=== PATIENT | female | born 1960 | race Caucasian/White ===

== ENCOUNTER → 2016-07-19 | Outpatient (CLI) | payer BC ==
[2015-10-19 10:55] VITALS: BP 154/64
[~2016-07-19] MED LIST: ATEN50TA PO; BENZ100C2 PO; CELE200C PO; FENO135C PO; HYDR25TA9 PO; LEVO50TA5 PO; LISI1TAB7 PO; PRED-220 PO; TRAM50TA PO; VENL225T PO; VENTOLIN HFA18 GM INH
[2016-07-19 09:09] LABS: POTASSIUM 3.7 mmol/L (3.5-5.1)
--- NOTE | 2016-07-19 15:25 | CARD ---
APPROVED REPORT EXAM: Two-dimensional and M-mode echocardiogram with Doppler and color Doppler. Other Information Quality : GoodHR: 68bpm Rhythm : NSR INDICATION Moderate mitral regurgitation RISK FACTORS Hypertension Obesity Hyperlipidemia 2D DIMENSIONS RVDd2.9 (2.9-3.5cm)Left Atrium(2D)3.8 (1.6-4.0cm) IVSd1.0 (0.7-1.1cm)Aortic Root(2D)3.0 (2.0-3.7cm) LVDd5.3 (3.9-5.9cm)LVOT Diameter2.4 (1.8-2.4cm) PWd0.0 (0.7-1.1cm)LVDs3.8 (2.5-4.0cm) FS (%) 29.1 %SV75.3 ml LVEF(%)55.0 (>50%) Aortic Valve AoV Peak Gio.120.2cm/sAoV VTI31.2cm AO Peak GR.5.8mmHgLVOT Peak Gio.89.3cm/s AO Mean GR.4mmHgAVA (VMAX)3.26cm2 Mitral Valve MV E Tjdpzich66.3cm/sMV E Peak Gr.3mmHg MV DECEL [id number] A Gpbiqrjt26.8cm/s MV E Mean Gr.2mmHgE/A Ratio0.9 MV A Affwntvp372vq Pulmonary Valve PV Peak Mllppitb04.7cm/s Pulmonary Vein S1 Lzdeavsf56.8cm/sD2 Sjluqkgv14.5cm/s PVa upewddsm35xcpk LEFT VENTRICLE The left ventricle is normal size. There is normal left ventricular wall thickness. The Ejection Frac tion for the left ventricle is 55%. There is normal LV segmental wall motion. Transmitral Doppler leila w pattern is Grade I-abnormal relaxation pattern. RIGHT VENTRICLE The right ventricle is normal size. There is normal right ventricular wall thickness. The right ventr icular systolic function is normal. ATRIA The left atrium size is mildly dilated The right atrium size is normal. The interatrial septum is int act with no evidence for an atrial septal defect or patent foramen ovale as noted on 2-D or Doppler i maging. AORTIC VALVE The aortic valve is mildly sclerotic. The aortic valve is trileaflet. Doppler and Color Flow revealed no significant aortic regurgitation. There is no significant aortic valvular stenosis. MITRAL VALVE Mitral annular calcification is mild. The mitral valve leaflets are thickened. There is no evidence o f mitral valve prolapse. There is no mitral valve stenosis. Doppler and Color Flow revealed moderate mitral regurgitation. TRICUSPID VALVE Doppler and Color Flow revealed no tricuspid valve regurgitation noted. There is no pulmonary hyperte nsion. PULMONIC VALVE Doppler and Color Flow revealed trace pulmonic valvular regurgitation. GREAT VESSELS The aortic root is normal in size. The ascending aorta is normal in size. The pulmonary artery is nor mal. The IVC is normal in size and collapses >50% with inspiration. PERICARDIAL EFFUSION There is no evidence of significant pericardial effusion. Critical Notification Critical Value: No <Conclusion> The Ejection Fraction for the left ventricle is 55%. Transmitral Doppler flow pattern is Grade I-abnormal relaxation pattern. The left atrium size is mildly dilated The right atrium size is normal. The aortic valve is mildly sclerotic. The aortic valve is trileaflet. Mitral annular calcification is mild. The mitral valve leaflets are thickened. Doppler and Color Flow revealed moderate mitral regurgitation. Doppler and Color Flow revealed no tricuspid valve regurgitation noted. There is no pulmonary hypertension. Doppler and Color Flow revealed trace pulmonic valvular regurgitation. There is no evidence of significant pericardial effusion.
== END | disposition home or self-care (01) ==
LOC: ECHO 07:28
PROVIDERS: ATTEND Internal Medicine Cardiovascular Disease
DX: I34.0 Nonrheumatic mitral (valve) insufficiency (principal); E66.01 Morbid (severe) obesity due to excess calories
CPT/HCPCS: 36415; 80051; 93306

== ENCOUNTER → 2017-02-12 | Outpatient (CLI) | payer BC ==
[2017-02-12 12:59] LABS: ALBUMIN 3.3 g/dL (3.4-5.0); ALBUMIN/GLOBULIN RATIO 0.9 (1.0-1.7); ALK PHOS 217 U/L (46-116); ALT (SGPT) 69 U/L (14-59); ANION GAP 9 (6-14); AST (SGOT) 52 U/L (15-37); BLOOD UREA NITROGEN 14 mg/dL (7-20); BUN/CREATININE RATIO 18 (6-20); CALCIUM 9.5 mg/dL (8.5-10.1); CARBON DIOXIDE 29 mmol/L (21-32); CHLORIDE 104 mmol/L (98-107); CHOLESTEROL 219 mg/dL (0-200); CHOLESTEROL/HDL RATIO 4.5; CREATININE 0.8 mg/dL (0.6-1.0); GFR 74.5; GLUCOSE 120 mg/dL (70-99); HDLC 49 mg/dL (40-60); LDLC 140 mg/dL (0-100); NON-HDL CHOLESTEROL 170 mg/dL (0-129); POTASSIUM 3.8 mmol/L (3.5-5.1); SODIUM 142 mmol/L (136-145); TOTAL BILIRUBIN 0.5 mg/dL (0.2-1.0); TOTAL PROTEIN 7.1 g/dL (6.4-8.2); TRIGLYCERIDES 150 mg/dL (0-150); VLDLC 30 mg/dL (0-40)
[2017-02-12 13:10] LABS: THYROID STIM HORMONE (TSH) 2.211 uIU/mL (0.358-3.74)
[2017-02-12 13:10] LABS: FREE T4 1.29 ng/dL (0.76-1.46)
[2017-02-12 17:11] LABS: HEMOGLOBIN A1C 6.3 % (4.8-5.6)
== END | disposition home or self-care (01) ==
LOC: LAB 12:11
DX: E78.5 Hyperlipidemia, unspecified (principal); E03.9 Hypothyroidism, unspecified; E55.9 Vitamin D deficiency, unspecified
CPT/HCPCS: 36415; 80053; 80061; 82306; 83036; 84439; 84443

== ENCOUNTER → 2017-07-12 | Outpatient (CLI) | payer BC ==
[2017-07-12 12:29] LABS: ADD MAN DIFF? NO
[2017-07-12 12:40] LABS: BASO # 0.1 x10^3/uL (0.0-0.2); BASO % 1 % (0-3); EOS % 0 % (0-3); LYMPH % 26 % (24-48); MEAN CORPUSCULAR HEMOGLOBIN 31 pg (25-35); MEAN CORPUSCULAR HGB CONC 35 g/dL (31-37); MEAN CORPUSCULAR VOLUME 88 fL (79-100); MONO # 0.3 x10^3/uL (0.0-1.1); MONO % 4 % (0-9); NEUT # 5.3 x10^3uL (1.8-7.7); NEUT % 69 % (31-73); PLATELET COUNT 217 x10^3/uL (140-400); RED BLOOD COUNT 4.91 x10^6/uL (3.50-5.40); RED CELL DISTRIBUTION WIDTH 13.8 % (11.5-14.5); WHITE BLOOD COUNT 7.8 x10^3/uL (4.0-11.0)
[2017-07-12 12:55] LABS: ALBUMIN 3.3 g/dL (3.4-5.0); ALBUMIN/GLOBULIN RATIO 0.8 (1.0-1.7); ALK PHOS 235 U/L (46-116); ALT (SGPT) 55 U/L (14-59); ANION GAP 8 (6-14); AST (SGOT) 48 U/L (15-37); BLOOD UREA NITROGEN 16 mg/dL (7-20); BUN/CREATININE RATIO 18 (6-20); CALCIUM 9.4 mg/dL (8.5-10.1); CARBON DIOXIDE 30 mmol/L (21-32); CHLORIDE 102 mmol/L (98-107); CHOLESTEROL 210 mg/dL (0-200); CREATININE 0.9 mg/dL (0.6-1.0); GLUCOSE 180 mg/dL (70-99); HDLC 60 mg/dL (40-60); LDLC 117 mg/dL (0-100); NON-HDL CHOLESTEROL 150 mg/dL (0-129); POTASSIUM 3.7 mmol/L (3.5-5.1); SODIUM 140 mmol/L (136-145); TOTAL BILIRUBIN 0.6 mg/dL (0.2-1.0); TOTAL PROTEIN 7.5 g/dL (6.4-8.2); TRIGLYCERIDES 167 mg/dL (0-150); VLDLC 33 mg/dL (0-40)
[2017-07-12 12:59] LABS: CHOLESTEROL/HDL RATIO 3.5
[2017-07-12 13:03] LABS: THYROID STIM HORMONE (TSH) 2.031 uIU/mL (0.358-3.74)
[2017-07-12 13:03] LABS: FREE T4 1.25 ng/dL (0.76-1.46)
[2017-07-13 03:13] LABS: HEMOGLOBIN A1C 8.1 % (4.8-5.6)
== END | disposition home or self-care (01) ==
LOC: LAB 12:15
DX: E55.9 Vitamin D deficiency, unspecified (principal); E03.9 Hypothyroidism, unspecified; E78.5 Hyperlipidemia, unspecified; R73.02 Impaired glucose tolerance (oral)
CPT/HCPCS: 36415; 80053; 80061; 82306; 83036; 84439; 84443; 85025

== ENCOUNTER → 2017-11-19 | Outpatient (CLI) | payer BC ==
[2015-10-19 10:55] VITALS: BP 154/64
[~2017-11-19] MED LIST changes: +BENZ-8 PO; -BENZ100C2 PO
[2017-11-19 11:13] LABS: CALCIUM 9.3 mg/dL (8.5-10.1); CREATININE 0.8 mg/dL (0.6-1.0); GFR 74.5; POTASSIUM 3.9 mmol/L (3.5-5.1)
--- NOTE | 2017-11-19 13:06 | RAD ---
DATE: 11/19/2017 EXAM: MAMMO DAPHNIE SCREENING BILATERAL HISTORY: Routine screening COMPARISON: 09/28/2014 This study was interpreted with the benefit of Computerized Aided Detection (CAD). Breast Density: SCATTERED The breast parenchyma shows scattered fibroglandular densities. Breast parenchyma level B. FINDINGS: 2-D and 3-D tomosynthesis imaging was performed in CC and MLO projections. No new or enlarging breast densities are seen. Benign type calcifications are present on the right. No suspicious microcalcifications have developed. IMPRESSION: Stable mammograms without evidence of malignancy. BI-RADS CATEGORY: 2 BENIGN FINDING(S) RECOMMENDED FOLLOW-UP: 12M 12 MONTH FOLLOW-UP PQRS compliance statement: Patient information was entered into a reminder system with a target due date for the next mammogram. Mammography is a sensitive method for finding small breast cancers, but it does not detect them all and is not a substitute for careful clinical examination. A negative mammogram does not negate a clinically suspicious finding and should not result in delay in biopsying a clinically suspicious abnormality. "Our facility is accredited by the [employer] Mammography [employer]."
[2017-11-19 23:14] LABS: HEMOGLOBIN A1C 6.6 % (4.8-5.6)
== END | disposition home or self-care (01) ==
LOC: LAB 10:40
PROVIDERS: ATTEND Family Medicine
DX: Z12.31 Encounter for screening mammogram for malignant neoplasm of breast (principal); E11.9 Type 2 diabetes mellitus without complications
CPT/HCPCS: 36415; 77063; 77067; 80048; 83036

== ENCOUNTER → 2018-04-23 | Outpatient (CLI) | payer BC ==
[2017-12-05 11:17] VITALS: BP 127/69
[~2018-04-23] MED LIST changes: +ASPI-630 PO; +CHOL10003 PO; +CHOL2000 PO; +CHOL200074 PO; +EZET10TA18 PO; +EZET1TAB58 PO; +FLUT9.9S NS; +FURO40TA4 PO; +GUAI600T47 PO; +HYDR-2145 PO; -HYDR25TA9 PO; +LORA10TA3 PO; +LOSA-73 PO; +MECL12.52 PO; +METF500T16 PO; +POTA10TA12 PO
--- NOTE | 2018-04-23 11:00 | CARD ---
MR#: [id number] Date of Study: 04/23/2018 Ordering Physician: AJAY PATEL, Referring Physician: AJAY PATEL Tech: Bonita Gottlieb RDCS APPROVED REPORT EXAM: Two-dimensional and M-mode echocardiogram with Doppler and color Doppler. Other Information Quality : Technically LimitedHR: 82bpm Rhythm : NSRTechnically limited study due to body habitus. INDICATION Chest Pain 2D DIMENSIONS RVDd3.3 (2.9-3.5cm)Left Atrium(2D)3.6 (1.6-4.0cm) IVSd1.5 (0.7-1.1cm)Aortic Root(2D)3.0 (2.0-3.7cm) LVDd4.2 (3.9-5.9cm)LVOT Diameter2.2 (1.8-2.4cm) PWd1.3 (0.7-1.1cm)LVDs3.1 (2.5-4.0cm) FS (%) 27.3 %SV42.0 ml LVEF(%)53.5 (>50%) M-Mode DIMENSIONS Left Atrium(MM)3.54 (2.5-4.0cm)Aortic Root3.26 (2.2-3.7cm) Aortic Valve AoV Peak Gio.128.9cm/sAoV VTI25.6cm AO Peak GR.6.7mmHgLVOT Peak Gio.84.7cm/s AO Mean GR.4mmHgAVA (VMAX)2.42cm2 ANDRÉS (VTI)2.40cm2 Mitral Valve MV E Refkhlny38.8cm/sMV DECEL WGPI077bo MV A Oavslyrq24.2cm/sE/A Ratio0.8 MV A Anyshqtg197oz Pulmonary Valve PV Peak Iityqlvd05.6cm/s Pulmonary Vein S1 Wdnknpra23.2cm/sD2 Gvuesiev87.9cm/s PVa cbbcthjg02iixz LEFT VENTRICLE The left ventricle is normal size. There is moderate concentric left ventricular hypertrophy. Left ve ntricle systolic function is normal. The Ejection Fraction is 55-60%. There is normal LV segmental wa ll motion. Transmitral Doppler flow pattern is Grade I-abnormal relaxation pattern. RIGHT VENTRICLE The right ventricle is normal size. There is normal right ventricular wall thickness. The right ventr icular systolic function is normal. ATRIA The left atrium size is normal. The right atrium size is normal. The interatrial septum is intact wit h no evidence for an atrial septal defect or patent foramen ovale as noted on 2-D or Doppler imaging. AORTIC VALVE The aortic valve is normal in structure and function. The aortic valve is trileaflet. Doppler and Col or Flow revealed no significant aortic regurgitation. There is no significant aortic valvular stenosi s. MITRAL VALVE The mitral valve is normal in structure and function. There is no evidence of mitral valve prolapse. There is no mitral valve stenosis. Doppler and Color-flow revealed trace mitral regurgitation. TRICUSPID VALVE The tricuspid valve is normal in structure and function. Doppler and Color Flow revealed trace tricus pid regurgitation. There is no tricuspid valve prolapse or vegetation. There is no tricuspid valve st enosis. PULMONIC VALVE The pulmonic valve is not well visualized. GREAT VESSELS The aortic root is normal in size. The ascending aorta is normal in size. The IVC is normal in size a nd collapses >50% with inspiration. PERICARDIAL EFFUSION There is no evidence of significant pericardial effusion. Critical Notification Critical Value: No <Conclusion> Left ventricle systolic function is normal. The Ejection Fraction is 55-60%. There is normal LV segmental wall motion. Transmitral Doppler flow pattern is Grade I-abnormal relaxation pattern. Trace mitral regurgitation. Trace tricuspid regurgitation. There is no evidence of significant pericardial effusion. Signed by : Ajay Patel, Electronically Approved : 04/23/2018 10:59:25
[2018-04-24] MEDS: REGADENOSON 0.4 MG/5 ML DISP.SYRIN. IV ONE (08:00)
--- NOTE | 2018-04-24 10:31 | RAD ---
MR#: [id number] Date of Study: 04/24/2018 Ordering Physician: AJAY HATCH, Referring Physician: AJAY HATCH, Tech: MARTI Lopez, RDMS, RTR APPROVED REPORT Patient Location : OUT-PATIENT Indications Lower Extremity Pain : Lower Extremity Edema : Risk Factors Obesity Past History Compression Stockings : Diabetes Findings The right great saphenous vein measures 5.5 mm and does not show any evidence of reflux. The left gre at saphenous vein measures 9 mm and does not show any evidence of reflux. The bilateral lesser saphen ous veins do not show any evidence of reflux. Critical Notification Critical Value: No <Conclusion> Negative for reflux in the bilateral greater and lesser saphenous veins. Signed by : Adan Olivia, Electronically Approved : 04/24/2018 10:30:57
--- NOTE | 2018-04-24 12:25 | RAD ---
MR#: [id number] Date of Study: 04/24/2018 Ordering Physician: AJAY HATCH, Referring Physician: CORIN PRATT Tech: Wanda Smith RT (R) (N) APPROVED REPORT Test Type: Pharmacological Stress Nurse/Tech: Tim Kamara RN Test Indications: CP Cardiac History: high cholesterol, HTN Medications: See EMR Medical History: asthma, DM Resting ECG: SR Resting Heart Rate: 73 bpm Resting Blood Pressure: 111/71mmHg Pretest Chest Pain: No chest pain Nurse/Tech Notes S1S2. Lung sounds clear. Consent: The procedure was explained to the patient in lay terms. Informed consent was witnessed. Rick eout was entered into [employer]. History and Stress Test performed by VILMA Martinez Pharm. Details Pharmacologic stress testing was performed using 0.4mg per 5ml of regadenoson given intravenously ove r 7-10 seconds. Stress Symptoms No chest pain or symptoms. POST EXERCISE Reason for Termination: Infusion complete Max HR: 87 bpm Max Blood Pressure: 142/70mmHg Blood Pressure response to exercise: Normal blood pressure response during stress. Heart Rate response to exercise: normal Chest Pain: No. Arrhythmia: No. ST Change: No. INTERPRETATION Stress EKG Conclusion: Baseline EKG showed sinus rhythm. No ischemic changes at peak stress. No arr hythmias. Imaging Protocol IMAGE PROTOCOL: Rest Tc-99m/stress Tc-99m 2 days Rest: Stress: Viability: Radiopharm.Tc99m PqebritawPp30q Sestamibi Lnzs08rXd 33.2mCi Duration 15min. 15min. Img Date 04/23/2018 04/24/2018 Inj-Img Wnau77dzv. 60min. Rest Admin Site:IV - Left AntecubitalAdministrator:TAMMI Crespo, ARRT (R)(N) Stress Admin Site: IV - Right HandAdministrator: VILMA Martinez STRESS DATA End Diast. Vol.97.0mlLVEDV index BSA38.0ml End Syst. Vol.31.0mlLVESV index BSA12.0ml Myocardial Hbrf744.0gEject. Uhrasaix18.0% Stress Scores Regional WT1.00Summed WT6.00 Regional WM0.00Summed WM1.00 Study quality was good. Left Ventricular size was Normal at Rest and Stress. Lung uptake was . Left Ventricular ejection fraction is 68%. The rest and stress images show normal perfusion, normal contraction and thickening. LV Perf. Quant 17 Seg. SSS0.00 17 Seg. SRS1.00 17 Seg. SDS0.00 Stress Defect Extent (% LAD)0.00Rest Defect Extent (% LAD)0.00Rev. Defect Extent (% LAD)0.00 Stress Defect Extent (% LCX) 0.00Rest Defect Extent (% LCX)0.00Rev. Defect Extent (% LCX)0.00 Stress Defect Extent (% RCA)0.00Rest Defect Extent (% RCA)0.00Rev. Defect Extent (% RCA)0.00 Stress Defect Extent (% LUIZA)1.30Rest Defect Extent (% LUIZA)0.00Rev. Defect Extent (% LUIZA)0.00 Conclusion 1. Regadenoson cardioisotope stress test did not show any evidence of ischemia or infarct. 2. Normal left ventricular systolic function with ejection fraction calculated at 68%. 3. Low risk for cardiac events. Signed by : Ajay Hatch, Electronically Approved : 04/24/2018 12:25:04
== END | disposition home or self-care (01) ==
LOC: ECHO 14:18
PROVIDERS: ATTEND Internal Medicine Cardiovascular Disease
DX: I34.0 Nonrheumatic mitral (valve) insufficiency (principal); I87.2 Venous insufficiency (chronic) (peripheral); I11.9 Hypertensive heart disease without heart failure; E66.9 Obesity, unspecified; E11.9 Type 2 diabetes mellitus without complications; R60.0 Localized edema; E78.00 Pure hypercholesterolemia, unspecified; J45.909 Unspecified asthma, uncomplicated
CPT/HCPCS: 78452; 93306; 96374; A9500; 93017; 93970; 96376; J2785

== ENCOUNTER → 2018-11-24 | Outpatient (CLI) | payer BC ==
[2017-12-05 11:17] VITALS: BP 127/69
[~2018-11-24] MED LIST changes: -EZET10TA18 PO; +EZET10TA20 PO; +LISI1TAB20 PO; -LISI1TAB7 PO
[2018-11-24 11:24] LABS: ALBUMIN 3.8 g/dL (3.4-5.0); ALBUMIN/GLOBULIN RATIO 0.9 (1.0-1.7); CALCIUM 10.1 mg/dL (8.5-10.1); CHOLESTEROL/HDL RATIO 4.2; CREATININE 0.9 mg/dL (0.6-1.0); GFR 64.8; TOTAL BILIRUBIN 0.6 mg/dL (0.2-1.0); TOTAL PROTEIN 7.9 g/dL (6.4-8.2)
[2018-11-24 11:36] LABS: FREE T4 1.28 ng/dL (0.76-1.46); THYROID STIM HORMONE (TSH) 2.846 uIU/mL (0.358-3.74)
[2018-11-25 00:11] LABS: HEMOGLOBIN A1C 6.3 % (4.8-5.6)
== END | disposition home or self-care (01) ==
LOC: LAB 10:22
PROVIDERS: ATTEND Family Medicine
DX: E11.9 Type 2 diabetes mellitus without complications (principal); E78.5 Hyperlipidemia, unspecified; E03.9 Hypothyroidism, unspecified
CPT/HCPCS: 36415; 80053; 80061; 83036; 84439; 84443

== ENCOUNTER → 2019-04-20 | Outpatient (CLI) | payer BC ==
[2017-12-05 11:17] VITALS: BP 127/69
[~2019-04-20] MED LIST changes: -MECL12.52 PO; +MECL12.573 PO; -POTA10TA12 PO; +POTASSIUM CHLO10 ME1 PO
[2019-04-20 11:33] LABS: ALBUMIN 3.6 g/dL (3.4-5.0); ALBUMIN/GLOBULIN RATIO 0.9 (1.0-1.7); CALCIUM 9.7 mg/dL (8.5-10.1); CHOLESTEROL/HDL RATIO 4.5; CREATININE 0.9 mg/dL (0.6-1.0); GFR 64.5; POTASSIUM 4.2 mmol/L (3.5-5.1); TOTAL BILIRUBIN 0.5 mg/dL (0.2-1.0); TOTAL PROTEIN 7.8 g/dL (6.4-8.2)
[2019-04-20 11:43] LABS: FREE T4 1.33 ng/dL (0.76-1.46); THYROID STIM HORMONE (TSH) 2.725 uIU/mL (0.358-3.74)
[2019-04-21 00:07] LABS: HEMOGLOBIN A1C 7.3 % (4.8-5.6)
== END | disposition home or self-care (01) ==
LOC: LAB 10:04
PROVIDERS: ATTEND Family Medicine
DX: E11.9 Type 2 diabetes mellitus without complications (principal); E03.9 Hypothyroidism, unspecified; E78.5 Hyperlipidemia, unspecified
CPT/HCPCS: 36415; 80053; 80061; 83036; 84439; 84443

== ENCOUNTER → 2019-07-20 | Outpatient (CLI) | payer BC ==
[2017-12-05 11:17] VITALS: BP 127/69
[~2019-07-20] MED LIST changes: +CLIN150C14 PO; +HYDR-3164 PO
--- NOTE | 2019-07-20 11:05 | CARD ---
MR#: [id number] Date of Study: 07/20/2019 Ordering Physician: AJAY HATCH, Referring Physician: AJAY HATCH, Tech: Lisa Campa APPROVED REPORT EXAM: Two-dimensional and M-mode echocardiogram with Doppler and color Doppler. Other Information Quality : AverageHR: 78bpm Technically limited study due to body habitus. INDICATION Mitral Valve Disease Mitral valve regurgitation RISK FACTORS Hypertension Hyperlipidemia Diabetes 2D DIMENSIONS Left Atrium(2D)4.1 (1.6-4.0cm)IVSd1.2 (0.7-1.1cm) Aortic Root(2D)3.0 (2.0-3.7cm)LVDd5.5 (3.9-5.9cm) LVOT Diameter2.2 (1.8-2.4cm)PWd1.1 (0.7-1.1cm) LVDs3.4 (2.5-4.0cm)FS (%) 38.7 % SV101.1 ml Aortic Valve AoV Peak Gio.139.3cm/sAoV VTI29.0cm AO Peak GR.7.8mmHgLVOT Peak Gio.107.3cm/s LVOT VTI 23.67cmAO Mean GR.5mmHg ANDRÉS (VMAX)2.13ym7RNX (VTI)3.08cm2 Mitral Valve MV E Tdmtizlz79.5cm/sMV DECEL SHWV377mm MV A Gcuklain24.9cm/sMV E Mean Gr.1mmHg MV TDK05jgQ/A Ratio0.9 MVA (PHT)4.04cm2 TDI E/Lateral E'6.5E/Medial E'7.3 Pulmonary Valve PV Peak Bpuygmoc86.1cm/sPV Peak Grad.4mmHg Tricuspid Valve TR P. Rqyehdsn390gr/sRAP WCRKNYWU0cnVe TR Peak Gr.00xvYrUFYJ77qkNi Pulmonary Vein S1 Hqqkjfcw16.7cm/sD2 Dlxvqcru28.3cm/s PVa cwzrydld039iozl LEFT VENTRICLE The left ventricle is normal size. There is mild concentric left ventricular hypertrophy. The left ve ntricular systolic function is normal and the ejection fraction is within normal range. The Ejection Fraction is 55-60%. There is normal LV segmental wall motion. Transmitral Doppler flow pattern is Gra de I-abnormal relaxation pattern. RIGHT VENTRICLE The right ventricle is normal size. There is normal right ventricular wall thickness. The right ventr icular systolic function is normal. ATRIA The left atrium size is normal. The right atrium size is normal. The interatrial septum is intact wit h no evidence for an atrial septal defect or patent foramen ovale as noted on 2-D or Doppler imaging. AORTIC VALVE The aortic valve is normal in structure and function. Doppler and Color Flow revealed no significant aortic regurgitation. There is no significant aortic valvular stenosis. MITRAL VALVE The mitral valve is normal in structure and function. There is no evidence of mitral valve prolapse. There is no mitral valve stenosis. Doppler and Color-flow revealed trace to mild mitral regurgitation . TRICUSPID VALVE The tricuspid valve is normal in structure and function. Doppler and Color Flow revealed trace to mil d tricuspid regurgitation with an estimated PAP of 36 mmHg. There is no tricuspid valve stenosis. PULMONIC VALVE The pulmonic valve is not well visualized. Doppler and Color Flow revealed no pulmonic valvular regur gitation. GREAT VESSELS The aortic root is normal in size. The IVC is dilated. PERICARDIAL EFFUSION There is no evidence of significant pericardial effusion. Critical Notification Critical Value: No <Conclusion> The left ventricle is normal size. The left ventricular systolic function is normal and the ejection fraction is within normal range. The Ejection Fraction is 55-60%. There is mild concentric left ventricular hypertrophy. Doppler and Color Flow revealed no significant aortic regurgitation. There is no significant aortic valvular stenosis. Doppler and Color-flow revealed trace to mild mitral regurgitation. Doppler and Color Flow revealed trace to mild tricuspid regurgitation with an estimated PAP of 36 mmH g. Signed by : Blair Carias MD Electronically Approved : 07/20/2019 11:04:40
== END | disposition home or self-care (01) ==
LOC: ECHO 07:42
PROVIDERS: ATTEND Internal Medicine Cardiovascular Disease
DX: I08.1 Rheumatic disorders of both mitral and tricuspid valves (principal)
CPT/HCPCS: 93306

== ENCOUNTER 2019-07-31 02:28 | Emergency (ER) | payer BC ==
[~2019-07-31] VITALS: Ht 170.2 cm; Wt 147.7 kg
[~2019-07-31 02:28] MED LIST changes: -CLIN150C14 PO; -HYDR-3164 PO
[2019-07-31] MEDS ORDERED: HYDR-3164 PO (03:09)
[2019-07-31] MEDS ORDERED: CLIN150C14 PO (03:09)
--- NOTE | 2019-07-31 03:09 | PHYS DOC ---
Past Medical History Past Medical History: Anxiety, Asthma, Bronchitis, CHF, Diabetes-Type II, High Cholesterol, Hypertension, Hypothyroid Past Surgical History: Appendectomy Additional Past Surgical Histo: R rotator cuff, bilat knee scope Smoking Status: Former Smoker Alcohol Use: Rarely Drug Use: None General Adult EDM: Chief Complaint: DENTAL PROBLEM HPI: HPI: Patient is a 59 year old female who presents for evaluation of right-sided dental and jaw pain. She states the pain radiates to her right ear and up near her right eye. Symptoms been progressing for the past 4 hours. Patient states she has a bad tooth and already has a dental appointment scheduled for later today. She states the pain was moderate and she was having trouble sleeping. There is no reported fevers and chills. There is no neck pain Review of Systems: Review of Systems: Constitutional: Denies fever or chills. [] Eyes: Denies change in visual acuity. [] HENT: Denies nasal congestion or sore throat, right dental pain, no facial swelling [] Respiratory: Denies cough or shortness of breath. [] Cardiovascular: Denies chest pain or edema. [] GI: Denies abdominal pain, nausea, vomiting, bloody stools or diarrhea. [] : Denies dysuria. [] Musculoskeletal: Denies back pain or joint pain. [] Integument: Denies rash. [] Neurologic: Denies headache, focal weakness or sensory changes. [] Endocrine: Denies polyuria or polydipsia. [] Lymphatic: Denies swollen glands. [] Psychiatric: Denies depression or anxiety. [] Heart Score: Risk Factors: Risk Factors: DM, Current or recent (<one month) smoker, HTN, HLP, family history of CAD, obesity. Risk Scores: Score 0 - 3: 2.5% MACE over next 6 weeks - Discharge Home Score 4 - 6: 20.3% MACE over next 6 weeks - Admit for Clinical Observation Score 7 - 10: 72.7% MACE over next 6 weeks - Early Invasive Strategies Allergies: Allergies: Allergies Coded Allergies Type Severity Reaction Last Updated Verified atorvastatin Allergy Intermediate 10/14/15 Yes cefuroxime Allergy Intermediate 10/14/15 Yes rosuvastatin Allergy Intermediate 10/14/15 Yes Physical Exam: PE: Constitutional: Well developed, well nourished, mild acute distress, non-toxic appearance. [] HENT: Normocephalic, atraumatic, bilateral external ears normal, oropharynx moist, no oral exudates, nose normal, no obvious dental abscess, multiple caries noted [] Eyes: PERRL, EOMI, conjunctiva normal, no discharge. [] Neck: Normal range of motion, no tenderness, supple, no stridor. [] Cardiovascular:Heart rate regular rhythm, no murmur [] Lungs & Thorax: Bilateral breath sounds clear to auscultation [] Abdomen: Bowel sounds normal, soft, no tenderness, no masses, no pulsatile masses. [] Skin: Warm, dry, no erythema, no rash. [] Back: No tenderness. [] Extremities: No tenderness, no cyanosis, no clubbing, ROM intact, no edema. [] Neurologic: Alert and oriented X 3, normal motor function, normal sensory function, no focal deficits noted. [] Psychologic: Affect normal, judgement normal, mood normal. [] Current Patient Data: Vital Signs: Vital Signs Date Time Temp Pulse Resp B/P (MAP) Pulse Ox O2 Delivery O2 Flow Rate FiO2 07/31/19 02:35 98.1 83 18 147/79 (101) 95 Room Air 98.1 EKG: EKG: [] Radiology/Procedures: Radiology/Procedures: [] Course & Med Decision Making: Course & Med Decision Making Pertinent Labs and Imaging studies reviewed. (See chart for details) [] Dragon Disclaimer: Dragon Disclaimer: This electronic medical record was generated, in whole or in part, using a voice recognition dictation system. 0305 dental pain is stable and patient has an appointment later today to see her dentist. Prescription for limited number of [place] given. She will also be st arted on clindamycin. First dose of clindamycin given now. Patient given injection of Toradol as well Departure Departure Impression: Primary Impression: Pain, dental Disposition: HOME, SELF-CARE Condition: STABLE Referrals: VINCENT GARRETT MD (PCP) Patient Instructions: Dental Pain Additional Instructions: Keep your appointment with your dentist later today, take antibiotic as directed, take your pain medication as directed which cannot drive when taking it Scripts Clindamycin Hcl (CLINDAMYCIN HCL) 150 Mg Capsule 1 CAP PO QID, #28 CAP Prov: DESI ANGELO DO 07/31/19 Hydrocodone/Apap 5-325 (NORCO 5-325 TABLET) 1 Each Tablet 1 TAB PO PRN Q6HRS PRN for PAIN, #6 TAB 0 Refills Prov: DESI ANGELO DO 07/31/19 Justicifation of Admission Dx: Justifications for Admission: Justification of Admission Dx: N/A DESI ANGELO DO Jul 31, 2019 03:09
[2019-07-31 03:27] VITALS: BP 152/96
[2019-07-31] MEDS ORDERED: KETOROLAC 15 MG/ML VIAL. IM ONE (03:30)
[2019-07-31] MEDS ORDERED: CLINDAMYCIN HCL 150 MG CAPSULE. PO ONE (03:30)
== END 2019-07-31 03:29 | disposition home or self-care (01) ==
LOC: ER 02:28
DX: K08.89 Other specified disorders of teeth and supporting structures (principal); R68.84 Jaw pain; F41.9 Anxiety disorder, unspecified; J45.909 Unspecified asthma, uncomplicated; I11.0 Hypertensive heart disease with heart failure; I50.9 Heart failure, unspecified; E78.00 Pure hypercholesterolemia, unspecified; E03.9 Hypothyroidism, unspecified; E11.9 Type 2 diabetes mellitus without complications; Z90.89 Acquired absence of other organs; Z98.890 Other specified postprocedural states; Z87.891 Personal history of nicotine dependence; Z88.8 Allergy status to other drugs, medicaments and biological substances
CPT/HCPCS: 96372; 99283; J1885

== ENCOUNTER → 2020-03-23 | Outpatient (CLI) | payer BC ==
[~2020-03-23] MED LIST changes: +CLIN150C15 PO; +HYDR-3164 PO; -MECL12.573 PO; +MECL12.574 PO
[2020-03-23 11:36] LABS: HEMATOCRIT 43.1 % (36.0-47.0); HEMOGLOBIN 14.4 g/dL (12.0-15.5); RED BLOOD COUNT 4.91 x10^6/uL (3.50-5.40); RED CELL DISTRIBUTION WIDTH 12.9 % (11.5-14.5); WHITE BLOOD COUNT 6.5 x10^3/uL (4.0-11.0)
[2020-03-23 11:42] LABS: ALBUMIN 3.5 g/dL (3.4-5.0); ALBUMIN/GLOBULIN RATIO 0.9 (1.0-1.7); CALCIUM 9.5 mg/dL (8.5-10.1); CHOLESTEROL/HDL RATIO 4.8; CREATININE 0.9 mg/dL (0.6-1.0); GFR 64.3; POTASSIUM 4.3 mmol/L (3.5-5.1); TOTAL BILIRUBIN 0.6 mg/dL (0.2-1.0); TOTAL PROTEIN 7.4 g/dL (6.4-8.2)
[2020-03-23 11:53] LABS: FREE T4 1.35 ng/dL (0.76-1.46); THYROID STIM HORMONE (TSH) 2.281 uIU/mL (0.358-3.74)
--- NOTE | 2020-03-23 20:14 | RAD ---
DATE: 03/23/2020 EXAM: MAMMO DAPHNIE SCREENING BILATERAL HISTORY: Routine annual screening COMPARISON: 11/19/2017, 09/28/2014, 03/23/2013 This study was interpreted with the benefit of Computerized Aided Detection (CAD). Breast Density: SCATTERED The breast parenchyma shows scattered fibroglandular densities. Breast parenchyma level B. FINDINGS: No suspicious mass, calcification, or architectural distortion in either breast. IMPRESSION: No evidence of malignancy. BI-RADS CATEGORY: 1 NEGATIVE RECOMMENDED FOLLOW-UP: 12M 12 MONTH FOLLOW-UP PQRS compliance statement: Patient information was entered into a reminder system with a target due date for the next mammogram. Mammography is a sensitive method for finding small breast cancers, but it does not detect them all and is not a substitute for careful clinical examination. A negative mammogram does not negate a clinically suspicious finding and should not result in delay in biopsying a clinically suspicious abnormality. "Our facility is accredited by the [employer] Mammography Program."
[2020-03-24 02:09] LABS: HEMOGLOBIN A1C 7.7 % (4.8-5.6)
== END ==
LOC: LAB 11:07
PROVIDERS: ATTEND Family Medicine
DX: Z12.31 Encounter for screening mammogram for malignant neoplasm of breast (principal); E11.9 Type 2 diabetes mellitus without complications; E55.9 Vitamin D deficiency, unspecified; E03.9 Hypothyroidism, unspecified; E78.5 Hyperlipidemia, unspecified
CPT/HCPCS: 36415; 77063; 77067; 80053; 80061; 82306; 83036; 84439; 84443; 85027

== ENCOUNTER → 2020-04-13 | Outpatient (CLI) | payer BC ==
[~2020-04-13] MED LIST changes: -MECL12.574 PO; +MECL12.582 PO
--- NOTE | 2020-04-13 15:13 | RAD ---
Exam Date: 04/13/2020 10:58 AM US ABDOMEN COMPLETE Indication: Reason: elevated liver enzyme / Spl. Instructions: / History: TECHNIQUE: Multiple longitudinal and transverse sonographic images of the abdomen are submitted for interpretation. FINDINGS: The liver is normal in size and echogenicity. The portal vein is patent, with hepatopetal flow. N o focal intrahepatic abnormality is seen. The gallbladder is normal, without gallstones, gallbladder wall thickening or pericholecystic fluid. There is no biliary ductal dilatation, with the common bile duct measuring 5 mm. The spleen is enlarged up to 15.1 cm with normal echogenicity. The visualized abdominal aorta, infer ior vena cava and pancreas are within normal limits. There is no upper abdominal ascites. The kidne ys are normal in appearance, with the right kidney measuring 12.8 cm and the left kidney measuring 12 .0 cm. IMPRESSION: Normal abdominal ultrasound. Electronically signed by: Emir Matthews MD (04/13/2020 3:11 PM) [id number]
== END ==
LOC: US 11:02
PROVIDERS: ATTEND Family Medicine
DX: R94.5 Abnormal results of liver function studies (principal)
CPT/HCPCS: 76700

== ENCOUNTER → 2020-04-20 | Outpatient (CLI) | payer BC | LOC: LAB 07:42 | PROVIDERS: ATTEND Family Medicine | DX: R74.8 Abnormal levels of other serum enzymes (principal); R74.01 Elevation of levels of liver transaminase levels | CPT/HCPCS: 84075; 84080; 86803 ==

== ENCOUNTER 2020-09-09 07:09 | Outpatient (CLI) | payer BC ==
[~2020-09-09] VITALS: Ht 170.2 cm; Wt 141.0 kg
[2020-09-09] VITALS (10 sets, daily range): BP systolic 114–143; BP diastolic 61–79
[~2020-09-09 07:09] MED LIST changes: -CLIN150C15 PO; +CLIN150C16 PO; -EZET1TAB58 PO; +[UNRECOGNIZED DRUG - CODE] PO
[2020-09-09] MEDS ORDERED: IODIXANOL 320 MG/ML 100 ML VIAL. ONE (07:46)
[2020-09-09] MEDS ORDERED: LIDOCAINE 1% PF 2 ML VIAL. ONE (07:47)
[2020-09-09 08:13] LABS: HEMATOCRIT 42.5 % (36.0-47.0); HEMOGLOBIN 14.3 g/dL (12.0-15.5); RED BLOOD COUNT 4.89 x10^6/uL (3.50-5.40); RED CELL DISTRIBUTION WIDTH 13.7 % (11.5-14.5); WHITE BLOOD COUNT 7.5 x10^3/uL (4.0-11.0)
[2020-09-09] MEDS ORDERED: GLIP5TAB22 PO (08:23)
[2020-09-09 08:24] LABS: CALCIUM 9.2 mg/dL (8.5-10.1); CREATININE 0.9 mg/dL (0.6-1.0); GFR 64.3; POTASSIUM 3.7 mmol/L (3.5-5.1)
--- NOTE | 2020-09-09 08:26 | PDOC ---
MODERATE SEDATION ASSESSMENT RISKS/ALTERNATIVES Risks/Alternatives Risks and alternatives of this type of sedation and procedure discussed with: RISK/ALTERNATIVES: Patient H & P ON CHART H & P H & P on chart and reviewed for co-morbid conditions and appropriate labs. H&P ON CHART: Yes STATUS PREG STATUS ASSESSED: N/A MEDS/ALLERGIES REVIEWED Meds/Allergies Reviewed Medications and Allergies including time and route of recently administered narcotics and sedatives. MEDS/ALLERGIES REVIEWED: Yes ASA RATING ASA RATING: II AIRWAY ASSESSMENT Airway Assessment Airway patency, oral function limitations, presence of caps, crowns, dentures, partials, and ability to extend neck assessed. AIRWAY ASSESSMENT: Yes MALLAMPATI SCORE MALLAMPATI SCORE: II PRE-SEDATION ASSESSMENT PRE-SEDATION ASSESSMENT: Yes AJAY HATCH MD Sep 09, 2020 08:26
[2020-09-09 08:28] LABS: PROTHROMBIN TIME PATIENT 12.7 SEC (11.7-14.0)
[2020-09-09] MEDS ORDERED: MIDAZOLAM HCL/PF 2 MG/2 ML VIAL. ONE (08:36)
[2020-09-09] MEDS ORDERED: VERAPAMIL 5 MG/2 ML VIAL. ONE (08:36)
[2020-09-09] MEDS ORDERED: fentaNYL PF VIAL 100 MCG/2 ML VIAL ONE (08:36)
[2020-09-09] MEDS ORDERED: NITROGLYCERIN 200 MCG/2 ML SYRINGE FOR CATH/VASC LAB. ONE (08:36)
[2020-09-09] MEDS ORDERED: HEPARIN for IV BOLUS 10,000 UNIT/10 ML VIAL. ONE (08:36)
[2020-09-09] MEDS ORDERED: NITROGLYCERIN 200 MCG/2 ML SYRINGE FOR CATH/VASC LAB. IART ONE (09:15)
[2020-09-09] MEDS ORDERED: LIDOCAINE 1% PF 2 ML VIAL. INJ ONE (09:15)
[2020-09-09] MEDS ORDERED: MIDAZOLAM HCL/PF 2 MG/2 ML VIAL. IV ONE (09:15)
[2020-09-09] MEDS ORDERED: fentaNYL PF VIAL 100 MCG/2 ML VIAL IV ONE (09:15)
[2020-09-09] MEDS ORDERED: HEPARIN for IV BOLUS 10,000 UNIT/10 ML VIAL. IART ONE (09:15)
[2020-09-09] MEDS ORDERED: IODIXANOL 320 MG/ML 100 ML VIAL. IART ONE (09:15)
[2020-09-09] MEDS ORDERED: VERAPAMIL 5 MG/2 ML VIAL. IART ONE (09:15)
--- NOTE | 2020-09-09 09:25 | CARD ---
MR#: [id number] Date of Study: 09/09/2020 Ordering Physician: AJAY HATCH, Referring Physician: AJAY HATCH Tech: HERB WYNN APPROVED REPORT Technologist: HERB WYNN Nurse: Johanne Arnold RN Procedure(s) performed: Left heart catheterization, selective coronary angiography and left ventricul ography via right transradial approach MODERATE SEDATION TIME: 26 MINS FLUORO TIME: 4.3 MIN DOSE: 58 GYCM2 CONTRAST: 93CC VISI INDICATION The indication(s) include : Dyspnea on exertion and positive stress test. [facility] Clinical Frailty Scale [facility] Clinical Frailty Scale: Mildly Frail Heart Failure Heart Failure: No PROCEDURE NARRATIVE After explaining the risks, benefits and alternative options, informed consent was obtained from arthur ent. Patient was brought to the cardiac Network Controller and right wrist was prepped and draped in the usual fashion after confirming a positive modified Niels's test. Arterial access was obtained in the [facility] radial artery and a 6 Maltese sheath was inserted. 6 Maltese Naun and 6 Maltese JL 3.5 catheters wer e used to perform selective angiography of the right and left coronary arteries. 6 Maltese pigtail ca theter was used to perform left ventriculography. Patient tolerated the procedure well. Hemostasis was achieved using TR band. There were no immediate complications. The following findings were note d. FINDINGS 1. Hemodynamics: Elevated left ventricular end-diastolic pressure of 30 mmHg consistent with acute o n chronic diastolic heart failure. No pullback gradient across the aortic valve. 2. Left ventriculography: Normal left ventricle systolic function with ejection fraction estimated at 60%. 1-2+ mitral regurgitation seen. 3. Coronary angiography: a. The left main coronary artery arose from the left sinus of Valsalva, gave rise to the left anteri or descending, ramus intermedius and left circumflex arteries and did not show any significant stenos is. b. The left anterior descending artery did not show any significant stenosis. c. The left circumflex artery did not show any significant stenosis. d. The ramus intermedius artery did not show any significant stenosis. e. The right coronary artery was a large and dominant vessel arising from the right sinus of Valsalv a that did not show any significant stenosis. Conclusion 1. No significant coronary artery disease 2. Normal left ventricle systolic function with ejection fraction estimated at 60% 3. Elevated left ventricular end-diastolic pressure of 30 mmHg consistent with acute on chronic osborne tolic heart failure Recommendations Medical Therapy Signed by : Ajay Hatch, Electronically Approved : 09/09/2020 09:24:34
[2020-09-09] MEDS ORDERED: IV 1/2 NORMAL SALINE 1,000 ML IV SCH (09:30)
--- NOTE | 2020-09-09 12:05 | NUR ---
Discharge Note: [facility] Discharge instructions and discharge home medications reviewed with Patient and a copy given. All questions have been answered and understanding verbalized. The following instructions and handouts were given: moderate sedation and radial site care. Discontinued left peripheral IV, no complications. Right radial dressing changed and arm board reapplied, no complications. Patient discharged to home, accompanied by her family member.
== END 2020-09-09 12:14 | disposition home or self-care (01) ==
LOC: CCL 07:09
PROVIDERS: ATTEND Internal Medicine Cardiovascular Disease
DX: R06.09 Other forms of dyspnea (principal); R94.39 Abnormal result of other cardiovascular function study; I11.0 Hypertensive heart disease with heart failure; I50.33 Acute on chronic diastolic (congestive) heart failure; E78.00 Pure hypercholesterolemia, unspecified; J44.9 Chronic obstructive pulmonary disease, unspecified; E66.9 Obesity, unspecified; E03.9 Hypothyroidism, unspecified; M19.90 Unspecified osteoarthritis, unspecified site; M81.0 Age-related osteoporosis without current pathological fracture; F41.9 Anxiety disorder, unspecified; F32.9 Major depressive disorder, single episode, unspecified; Z85.828 Personal history of other malignant neoplasm of skin; Z87.891 Personal history of nicotine dependence; Z79.899 Other long term (current) drug therapy; Z98.890 Other specified postprocedural states; Z88.8 Allergy status to other drugs, medicaments and biological substances; Z82.49 Family history of ischemic heart disease and other diseases of the circulatory system; Z20.822 Contact with and (suspected) exposure to COVID-19
CPT/HCPCS: 36415; 80048; 85027; 85610; 87426; 93458; 99152; 99153; C1769; C1894; J1644; J2250; J3010; J3490; Q9967

== ENCOUNTER → 2020-09-20 | Outpatient (CLI) | payer BC ==
[2020-09-09 11:17] VITALS: BP 114/65
[~2020-09-20] MED LIST changes: +GLIP5TAB22 PO
[2020-09-20 12:24] LABS: BASO % 1 % (0-3); EOS % 0 % (0-3); HEMATOCRIT 42.6 % (36.0-47.0); HEMOGLOBIN 14.5 g/dL (12.0-15.5); LYMPH # 1.7 x10^3/uL (1.0-4.8); LYMPH % 25 % (24-48); MEAN CORPUSCULAR HEMOGLOBIN 30 pg (25-35); MEAN CORPUSCULAR HGB CONC 34 g/dL (31-37); MEAN CORPUSCULAR VOLUME 86 fL (79-100); MONO # 0.4 x10^3/uL (0.0-1.1); MONO % 5 % (0-9); NEUT # 4.8 x10^3/uL (1.8-7.7); NEUT % 70 % (31-73); PLATELET COUNT 190 x10^3/uL (140-400); RED BLOOD COUNT 4.92 x10^6/uL (3.50-5.40); RED CELL DISTRIBUTION WIDTH 13.5 % (11.5-14.5)
[2020-09-20 12:38] LABS: ALBUMIN 3.3 g/dL (3.4-5.0); ALBUMIN/GLOBULIN RATIO 0.8 (1.0-1.7); CALCIUM 9.1 mg/dL (8.5-10.1); GFR 56.9; TOTAL BILIRUBIN 0.6 mg/dL (0.2-1.0); TOTAL PROTEIN 7.4 g/dL (6.4-8.2)
[2020-09-20 12:39] LABS: CHOLESTEROL/HDL RATIO 4.7
[2020-09-20 12:48] LABS: FREE T4 1.44 ng/dL (0.76-1.46); THYROID STIM HORMONE (TSH) 2.355 uIU/mL (0.358-3.74)
[2020-09-21 02:09] LABS: HEMOGLOBIN A1C 6.8 % (4.8-5.6)
== END ==
LOC: LAB 11:58
PROVIDERS: ATTEND Family Medicine
DX: E11.9 Type 2 diabetes mellitus without complications (principal); E78.5 Hyperlipidemia, unspecified; E03.9 Hypothyroidism, unspecified
CPT/HCPCS: 36415; 80053; 80061; 83036; 84439; 84443; 85025

== ENCOUNTER → 2021-05-18 | Outpatient (CLI) | payer BC ==
[2020-09-09 11:17] VITALS: BP 114/65
[~2021-05-18] MED LIST changes: -LISI1TAB20 PO; +LISI1TAB39 PO
--- NOTE | 2021-05-19 08:28 | CARD ---
MR#: [id number] Date of Study: 05/18/2021 Ordering Physician: AJAY PATEL, Referring Physician: Nati PRATT: Wilber Chen [facility] APPROVED REPORT EXAM: Two-dimensional and M-mode echocardiogram with Doppler and color Doppler. Other Information Quality : FairHR: 74bpm Rhythm : NSRTechnically limited study due to body habitus. INDICATION Congestive Heart Failure RISK FACTORS Hypertension Obesity 2D DIMENSIONS Left Atrium(2D)4.4 (1.6-4.0cm)IVSd1.2 (0.7-1.1cm) Aortic Root(2D)3.1 (2.0-3.7cm)LVDd5.6 (3.9-5.9cm) LVOT Diameter2.0 (1.8-2.4cm)PWd1.1 (0.7-1.1cm) LA Lhtcqx73 (18-58mL)LVDs3.4 (2.5-4.0cm) FS (%) 39.2 %SV105.1 ml LVEF(%)69.1 (>50%) Aortic Valve AoV Peak Gio.140.5cm/sAoV VTI30.9cm AO Peak GR.7.9mmHgLVOT Peak Gio.91.2cm/s AO Mean GR.4mmHgAVA (VMAX)2.14cm2 Mitral Valve MV E Wvjwudij05.9cm/sMV E Peak Gr.2mmHg MV DECEL [id number] A Mvkzmyvx16.8cm/s MV E Mean Gr.1mmHgE/A Ratio0.8 Pulmonary Valve PV Peak Vpgnlrrl04.6cm/s Tricuspid Valve TR P. Efxcpbwu850gi/sTR Peak Gr.12mmHg Pulmonary Vein S1 Jiuawlgp46.0cm/sD2 Lopbtzuq29.3cm/s LEFT VENTRICLE The left ventricle is normal size. There is borderline concentric left ventricular hypertrophy. The l eft ventricular systolic function is normal. The ejection fraction is 55%. There is normal LV segment al wall motion. Transmitral Doppler flow pattern is Grade I-abnormal relaxation pattern. No left vent ricle thrombus noted on this study. There is no ventricular septal defect visualized. There is no lef t ventricular aneurysm. There is no mass noted in the left ventricle. RIGHT VENTRICLE The right ventricle is normal size. There is normal right ventricular wall thickness. The right ventr icular systolic function is normal. ATRIA The left atrium is mildly dilated. The right atrium size is normal. The interatrial septum is intact with no evidence for an atrial septal defect or patent foramen ovale as noted on 2-D or Doppler imagi ng. AORTIC VALVE The aortic valve is normal in structure and function. Doppler and Color Flow revealed no significant aortic regurgitation. There is no significant aortic valvular stenosis. There is no aortic valvular v egetation. MITRAL VALVE The mitral valve is normal in structure and function. There is no evidence of mitral valve prolapse. There is no mitral valve stenosis. Doppler and Color-flow revealed trace mitral regurgitation. TRICUSPID VALVE The tricuspid valve is normal in structure and function. Doppler and Color Flow revealed trace tricus pid regurgitation. There is no tricuspid valve prolapse or vegetation. There is no tricuspid valve st enosis. PULMONIC VALVE The pulmonary valve is normal in structure and function. Doppler and Color Flow revealed no pulmonic valvular regurgitation. There is no pulmonic valvular stenosis. GREAT VESSELS The aortic root is normal in size. The ascending aorta is normal in size. The pulmonary artery is nor mal. The IVC is normal in size and collapses >50% with inspiration. PERICARDIAL EFFUSION There is no pleural effusion. There is no evidence of significant pericardial effusion. Critical Notification Critical Value: No <Conclusion> The left ventricular systolic function is normal. The ejection fraction is 55%. There is normal LV segmental wall motion. Transmitral Doppler flow pattern is Grade I-abnormal relaxation pattern. Trace mitral regurgitation. Trace tricuspid regurgitation. There is no evidence of significant pericardial effusion. Signed by : Ajay Patel, Electronically Approved : 05/19/2021 08:27:44
== END ==
LOC: ECHO 10:50
PROVIDERS: ATTEND Internal Medicine Cardiovascular Disease
DX: I34.0 Nonrheumatic mitral (valve) insufficiency (principal); I50.9 Heart failure, unspecified
CPT/HCPCS: 93306; C8929